=== PATIENT | female | born 1985 | race Caucasian/White ===

== ENCOUNTER 2017-12-25 08:51 | Emergency (ER) | payer SELFPAY ==
[2017-12-25 08:58] VITALS: BP 132/81
[2017-12-25] MEDS ORDERED: LIDOCAINE 5% (700 MG) TRANSDERMAL ADH..PATCH TP ONE (09:44)
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
--- NOTE | 2017-12-25 10:07 | RADIOLOGY REPORT (SQ) ---
EXAM DESCRIPTION: RIBS LEFT W/PA CHEST COMPLETED DATE/TIME: 12/25/2017 9:38 am REASON FOR STUDY: left rib injury COMPARISON: None. TECHNIQUE: Frontal view of the chest and additional views of the left ribs acquired. NUMBER OF VIEWS: Three view. LIMITATIONS: None. FINDINGS: FRONTAL CXR: No pneumothorax. No pleural effusion. No atelectasis or infiltrates. RIBS: Nondisplaced fracture left 7th posterolateral rib. OTHER: No other significant finding. IMPRESSION: Nondisplaced fracture left posterolateral 7th rib. COMMENT: SITE OF TRAUMA/COMPLAINT MARKED/STAMP COMPLETED: YES. TECHNICAL DOCUMENTATION: JOB ID: [id number] [employer]- All Rights Reserved Reading location - IP/workstation name: [email or web address]
== END 2017-12-25 10:37 | disposition home or self-care (01) ==
LOC: ER 08:51
DX: S22.32XA Fracture of one rib, left side, initial encounter for closed fracture (principal); M79.1 Myalgia; Y04.2XXA Assault by strike against or bumped into by another person, initial encounter; F17.210 Nicotine dependence, cigarettes, uncomplicated
CPT/HCPCS: 99283; 99406